=== PATIENT | female | born 1990 | race Caucasian/White ===

== ENCOUNTER 2020-11-17 14:31 | Inpatient (IN) ==
[2020-11-17 16:25] LABS: Basophils # 0.1 K/mcL (0.0-0.2); Basophils % 0.3 %; Eosinophils % 0.1 %; Hemoglobin 13.8 g/dL (11.5-15.4); Immature Granulocytes % 0.4 % (0-4); Lymphocytes # 1.8 K/mcL (0.6-4.6); Lymphocytes % 9.6 %; Mean Corpuscular HGB Conc 32.1 g/dL (31.6-35.5); Mean Corpuscular Hemoglobin 29.4 pg (28.0-33.3); Mean Corpuscular Volume 91.5 fL (83.0-100.0); Mean Platelet Volume 11.5 fL (9.4-12.4); Monocytes # 1.3 K/mcL (0.0-1.3); Monocytes % 6.9 %; Neutrophils # 15.5 K/mcL (1.6-8.9); Platelet Count 232 K/mcL (140-400); Segmented Neutrophils % 82.7 %; White Blood Count 18.8 K/mcL (4.3-11.1)
[2020-11-17 16:30] LABS: Bilirubin,Urine Negative (Negative); Blood,Urine Trace (Negative); Calcium Oxalate Crystals,Urine Present per hpf; Clarity,Urine Turbid (Clear); Color,Urine Light-Yellow (Yellow); Glucose,Urine (UA) Normal (Normal); Ketones,Urine Negative (Negative); Leukocyte Esterase,Urine Large (Negative); Mucus,Urine Few per lpf (None-Few); Nitrite,Urine Negative (Negative); PH,Urine 6.5 pH Units (5.0-8.0); Protein,Urine Trace mg/dL (Neg-Trace); Specific Gravity,Urine 1.015 (1.010-1.025); Squamous Epithelial Cell,Urine Moderate per hpf (None-Few); Urobilinogen,Urine Normal (Normal); WBC,Urine TNTC per hpf (0-3)
[2020-11-17 16:43] LABS: BUN/Creatinine Ratio 11 (6-26); Blood Urea Nitrogen 10 mg/dL (6-20); Calcium 9.4 mg/dL (8.6-10.3); Carbon Dioxide 23 mEq/L (23-29); Chloride 103 mEq/L (98-107); Glucose 87 mg/dL (70-105); Osmolality,Calculated 280 (280-300); Potassium 3.9 mEq/L (3.5-5.1); Sodium 136 mEq/L (136-145); eGFR For African Americans > 60 (> 60); eGFR For Non-African Americans > 60 (> 60)
[2020-11-17] MEDS ORDERED: 0.9 % Sodium Chloride 1,000 ML IVC ONE ×2 (17:04→18:22)
[2020-11-17] MEDS ORDERED: Isovue-370 500 ML BOTTLE IVP ONE (17:04)
[2020-11-17] MEDS ORDERED: cefTRIAXone 1,000 MG in 0.9 % Sodium Chloride Mini Bag 100 ML IVPB ONE (17:56)
[2020-11-17] MEDS ORDERED: Naloxone 0.4 MG/ML INJ IVP PRN (18:56)
[2020-11-17] MEDS ORDERED: Ketorolac 15 MG/ML VIAL IVP ONE (18:58)
[2020-11-17] MEDS ORDERED: cefTRIAXone 1,000 MG in Water for inj. (sterile) 20 ML IVP SCH (19:00)
[2020-11-17] MEDS: 0.9 % Sodium Chloride 1,000 ML IVC SCH (22:21)
[2020-11-17] MEDS: traZODone 50 MG TABLET PO SCH (22:21)
[2020-11-18] MEDS: cefTRIAXone 1,000 MG in Water for inj. (sterile) 10 ML IVP SCH (01:06)
[2020-11-18 01:41] LABS: Amphetamine Screen,Urine Negative ng/mL (Cutoff=1000); Barbiturate Screen,Urine Negative ng/mL (Cutoff=200); Benzodiazepines Screen,Urine Negative ng/mL (Cutoff=200); Cannabinoid Screen,Urine Positive ng/mL (Cutoff = 50); Cocaine Screen,Urine Negative ng/mL (Cutoff= 300); Opiate Screen,Urine Negative ng/mL (Cutoff=300); Phencyclidine Screen,Urine Negative ng/mL (Cutoff=25)
[2020-11-18 05:41] LABS: BUN/Creatinine Ratio 13 (6-26); Blood Urea Nitrogen 12 mg/dL (6-20); Calcium 7.9 mg/dL (8.6-10.3); Carbon Dioxide 22 mEq/L (23-29); Chloride 112 mEq/L (98-107); Glucose 123 mg/dL (70-105); Osmolality,Calculated 291 (280-300); Potassium 3.1 mEq/L (3.5-5.1); Sodium 140 mEq/L (136-145); eGFR For African Americans > 60 (> 60); eGFR For Non-African Americans > 60 (> 60)
[2020-11-18] MEDS: Ketorolac 30 MG/ML VIAL IVP SCH ×3 (06:40→18:40)
[2020-11-18 07:05] LABS: Basophils % 0.4 %; Eosinophils # 0.1 K/mcL (0.0-0.6); Eosinophils % 1.1 %; Hematocrit 34.7 % (35.3-44.9); Immature Granulocytes % 0.3 % (0-4); Lymphocytes # 2.1 K/mcL (0.6-4.6); Lymphocytes % 19.7 %; Mean Corpuscular HGB Conc 32.3 g/dL (31.6-35.5); Mean Corpuscular Hemoglobin 29.9 pg (28.0-33.3); Mean Corpuscular Volume 92.5 fL (83.0-100.0); Mean Platelet Volume 12.1 fL (9.4-12.4); Monocytes # 1.2 K/mcL (0.0-1.3); Monocytes % 11.6 %; Neutrophils # 7.1 K/mcL (1.6-8.9); Platelet Count 183 K/mcL (140-400); Red Blood Count 3.75 M/mcL (3.82-4.97); Red Cell Distribution Width 12.2 % (11.5-14.5); Segmented Neutrophils % 66.9 %; White Blood Count 10.6 K/mcL (4.3-11.1)
[2020-11-18 07:08] LABS: Hemoglobin 11.2 g/dL (11.5-15.4)
[2020-11-18] MEDS: Nicotine 14 MG PATCH.TD24 TD SCH (07:48)
[2020-11-18] MEDS: 0.9 % Sodium Chloride 1,000 ML IVC SCH (07:48)
[2020-11-18] MEDS ORDERED: Acetaminophen 325 MG TABLET PO PRN (10:21)
[2020-11-18] MEDS ORDERED: Ketorolac 30 MG/ML VIAL IVP SCH ×2 (12:00)
[2020-11-18] MEDS: *HR* HYDROcodone/Acet 5/325 mg TABLET PO PRN (16:05)
[2020-11-18] MEDS: traZODone 50 MG TABLET PO SCH (21:09)
[2020-11-19 01:08] LABS: Basophils % 0.4 %; Eosinophils # 0.2 K/mcL (0.0-0.6); Eosinophils % 1.5 %; Hemoglobin 11.2 g/dL (11.5-15.4); Immature Granulocytes % 0.2 % (0-4); Lymphocytes # 2.8 K/mcL (0.6-4.6); Lymphocytes % 28.6 %; Mean Corpuscular Hemoglobin 30.3 pg (28.0-33.3); Mean Corpuscular Volume 94.6 fL (83.0-100.0); Mean Platelet Volume 11.9 fL (9.4-12.4); Monocytes % 9.9 %; Neutrophils # 5.7 K/mcL (1.6-8.9); Platelet Count 186 K/mcL (140-400); Red Cell Distribution Width 12.1 % (11.5-14.5); Segmented Neutrophils % 59.4 %; White Blood Count 9.7 K/mcL (4.3-11.1)
[2020-11-19] MEDS: cefTRIAXone 1,000 MG in Water for inj. (sterile) 10 ML IVP SCH (01:12)
[2020-11-19] MEDS: Ketorolac 30 MG/ML VIAL IVP SCH ×5 (01:12→23:23)
[2020-11-19 01:25] LABS: BUN/Creatinine Ratio 13 (6-26); Blood Urea Nitrogen 10 mg/dL (6-20); Calcium 8.2 mg/dL (8.6-10.3); Carbon Dioxide 22 mEq/L (23-29); Chloride 112 mEq/L (98-107); Glucose 85 mg/dL (70-105); Osmolality,Calculated 288 (280-300); Potassium 3.6 mEq/L (3.5-5.1); Sodium 140 mEq/L (136-145); eGFR For African Americans > 60 (> 60); eGFR For Non-African Americans > 60 (> 60)
[2020-11-19] MEDS ORDERED: 0.9 % Sodium Chloride 250 ML IVC ONE (04:58)
[2020-11-19] MEDS: *HR* HYDROcodone/Acet 5/325 mg TABLET PO PRN ×2 (08:56→19:05)
[2020-11-19] MEDS: Nicotine 14 MG PATCH.TD24 TD SCH (08:56)
[2020-11-19] MEDS ORDERED: Lidocaine -MPF 1% 5 ML AMPUL INFILT ONE (10:34)
[2020-11-19] MEDS: Ertapenem 1,000 MG in 0.9 % Sodium Chloride Mini Bag 100 ML IVPB SCH (12:17)
[2020-11-19] MEDS: Ondansetron 4 MG/2 ML VIAL IVP PRN (13:55)
[2020-11-19] MEDS: traZODone 50 MG TABLET PO SCH (23:23)
[2020-11-20 05:45] LABS: White Blood Count 7.1 K/mcL (4.3-11.1)
[2020-11-20 05:46] LABS: Basophils % 0.6 %; Eosinophils # 0.2 K/mcL (0.0-0.6); Eosinophils % 2.8 %; Hematocrit 36.2 % (35.3-44.9); Hemoglobin 11.9 g/dL (11.5-15.4); Immature Granulocytes % 0.1 % (0-4); Lymphocytes # 2.5 K/mcL (0.6-4.6); Lymphocytes % 35.4 %; Mean Corpuscular HGB Conc 32.9 g/dL (31.6-35.5); Mean Corpuscular Hemoglobin 30.7 pg (28.0-33.3); Mean Corpuscular Volume 93.3 fL (83.0-100.0); Mean Platelet Volume 11.9 fL (9.4-12.4); Monocytes # 0.6 K/mcL (0.0-1.3); Monocytes % 7.9 %; Neutrophils # 3.8 K/mcL (1.6-8.9); Platelet Count 219 K/mcL (140-400); Red Blood Count 3.88 M/mcL (3.82-4.97); Red Cell Distribution Width 12.3 % (11.5-14.5); Segmented Neutrophils % 53.2 %
[2020-11-20] MEDS: *HR* HYDROcodone/Acet 5/325 mg TABLET PO PRN ×3 (05:50→23:47)
[2020-11-20] MEDS: Ketorolac 30 MG/ML VIAL IVP SCH ×4 (05:50→22:49)
[2020-11-20 06:07] LABS: BUN/Creatinine Ratio 12 (6-26); Blood Urea Nitrogen 9 mg/dL (6-20); Calcium 8.8 mg/dL (8.6-10.3); Carbon Dioxide 22 mEq/L (23-29); Chloride 111 mEq/L (98-107); Glucose 88 mg/dL (70-105); Osmolality,Calculated 286 (280-300); Potassium 3.9 mEq/L (3.5-5.1); Sodium 139 mEq/L (136-145); eGFR For African Americans > 60 (> 60); eGFR For Non-African Americans > 60 (> 60)
[2020-11-20] MEDS: Ertapenem 1,000 MG in 0.9 % Sodium Chloride Mini Bag 100 ML IVPB SCH (09:35)
[2020-11-20] MEDS: Nicotine 14 MG PATCH.TD24 TD SCH (09:35)
[2020-11-20] MEDS: Budesonide/Formoterol 160/4.5 1 PUFF INH IH SCH (19:54)
[2020-11-20] MEDS: traZODone 50 MG TABLET PO SCH (22:50)
[2020-11-20] MEDS: Ondansetron 4 MG/2 ML VIAL IVP PRN (23:47)
[2020-11-21 05:22] LABS: Basophils % 0.6 %; Eosinophils # 0.2 K/mcL (0.0-0.6); Eosinophils % 2.8 %; Hematocrit 33.3 % (35.3-44.9); Hemoglobin 10.9 g/dL (11.5-15.4); Immature Granulocytes % 0.1 % (0-4); Lymphocytes # 2.9 K/mcL (0.6-4.6); Lymphocytes % 39.9 %; Mean Corpuscular HGB Conc 32.7 g/dL (31.6-35.5); Mean Corpuscular Hemoglobin 29.5 pg (28.0-33.3); Mean Corpuscular Volume 90.2 fL (83.0-100.0); Mean Platelet Volume 11.5 fL (9.4-12.4); Monocytes # 0.6 K/mcL (0.0-1.3); Monocytes % 8.4 %; Neutrophils # 3.5 K/mcL (1.6-8.9); Platelet Count 232 K/mcL (140-400); Red Blood Count 3.69 M/mcL (3.82-4.97); Red Cell Distribution Width 11.9 % (11.5-14.5); Segmented Neutrophils % 48.2 %; White Blood Count 7.3 K/mcL (4.3-11.1)
[2020-11-21 05:39] LABS: BUN/Creatinine Ratio 18 (6-26); Blood Urea Nitrogen 13 mg/dL (6-20); Calcium 8.9 mg/dL (8.6-10.3); Carbon Dioxide 22 mEq/L (23-29); Chloride 110 mEq/L (98-107); Glucose 90 mg/dL (70-105); Osmolality,Calculated 288 (280-300); Potassium 3.6 mEq/L (3.5-5.1); Sodium 139 mEq/L (136-145); eGFR For African Americans > 60 (> 60); eGFR For Non-African Americans > 60 (> 60)
[2020-11-21] MEDS: Budesonide/Formoterol 160/4.5 1 PUFF INH IH SCH ×2 (08:03→20:50)
[2020-11-21] MEDS: Ketorolac 30 MG/ML VIAL IVP SCH ×4 (08:54→19:44)
[2020-11-21] MEDS: Ertapenem 1,000 MG in 0.9 % Sodium Chloride Mini Bag 100 ML IVPB SCH (08:55)
[2020-11-21] MEDS: Nicotine 14 MG PATCH.TD24 TD SCH (08:58)
[2020-11-21] MEDS: *HR* HYDROcodone/Acet 5/325 mg TABLET PO PRN (16:25)
[2020-11-21] MEDS: traZODone 50 MG TABLET PO SCH (20:32)
[2020-11-22] MEDS: Ketorolac 30 MG/ML VIAL IVP SCH ×2 (00:32→05:24)
[2020-11-22] MEDS: Budesonide/Formoterol 160/4.5 1 PUFF INH IH SCH (07:40)
[2020-11-22] MEDS ORDERED: Ibuprofen 800 MG TABLET PO SCH (08:00)
[2020-11-22] MEDS ORDERED: Famotidine 20 MG TABLET PO SCH (08:15)
[2020-11-22] MEDS: Nicotine 14 MG PATCH.TD24 TD SCH (09:12)
[2020-11-22] MEDS: Ertapenem 1,000 MG in 0.9 % Sodium Chloride Mini Bag 100 ML IVPB SCH (09:14)
[2020-11-22 11:02] VITALS: BP 112/63
== END 2020-11-22 15:19 | disposition home or self-care (01) | DRG 463 ==
LOC: 3NENU 14:31 → EMEROOARM 14:31 → SUATTDRO 18:44 → 3NENU 19:50 → 3ANU 11-21 00:24
PROVIDERS: ADMIT Internal Medicine; ATTEND Internal Medicine